=== PATIENT | male | born 1935 | race Caucasian/White ===

== ENCOUNTER 2017-05-30 09:27 | Emergency (ER) | payer MEDICARE, BC ==
[2016-07-05 12:15] VITALS: BMI 20.9
[~2017-05-30 09:27] MED LIST: ASCORBIC ACID500 MG PO; BABY ASPIRIN81 MG PO; BRILINTA90 MG PO; CARDURA2 MG PO; CINNAMON500 MG PO; COREG6.25 MG PO; EFFIENT10 MG PO; FLOMAX0.4 MG PO; GLIPIZIDE METFO PO; GLIPIZIDE10 MG PO; GLUCOPHAGE1000 MG PO; HYDROCHLOROTHIA25 MG PO; LASIX40 MG PO; LIBRIUM 10 MG C10 MG PO; LOVASTATIN20 MG PO; MAGNESIUM OXID250 MG PO; METOPROLOL TART50 MG PO; NORVASC5 MG PO; PRAVACHOL40 MG PO; PRESERVISION AR1 CAP PO; TRAVATAN Z2.5 ML EACH EYE; ULTRAM50 MG PO; VITAMIN C1000 MG PO; VITAMIN E1000 UNIT; ZESTRIL40 MG PO
[2017-05-30 10:17] LABS: ALBUMIN 3.3 g/dL (3.4-5.0); ALKALINE PHOSPHATASE 87 U/L (46-116); ALT (SGPT) 28 U/L (10-68); BILIRUBIN - TOTAL 0.55 mg/dL (0.2-1.3); CALC OSMOLALITY 304 mosm/kg (275-300); CARBON DIOXIDE 27.4 mmol/L (21.0-32.0); CHLORIDE - SERUM 103 mmol/L (98-107); CREATININE - SERUM 2.2 mg/dL (0.6-1.3); GLUCOSE 101 mg/dL (74-106); POTASSIUM - SERUM 4.1 mmol/L (3.5-5.1); PROTEIN - SERUM 7.1 g/dL (6.4-8.2); SODIUM 140 mmol/L (136-145); UREA NITROGEN 84 mg/dL (7-18); eGFR NON AFRICAN AMERICAN 31 mL/min (90-120)
[2017-05-30 10:24] LABS: BASOPHILS 0.3 % (0-2); EOSINOPHILS 4.4 % (0-7); HEMATOCRIT 31.6 % (42.0-54.0); HEMOGLOBIN 10.2 g/dL (13.5-17.5); IMMATURE GRANULOCYTES 0.1 % (0-5); LYMPHOCYTES 12.5 % (15-50); MCH 30.7 pg (26.0-34.0); MCHC 32.3 g/dL (31.0-37.0); MCV 95.2 fL (80.0-100.0); MEAN PLATELET VOLUME 10.3 fL (7.4-10.4); MONOCYTES 7.5 % (2-11); NEUTROPHILS 75.2 % (40-80); PLATELET COUNT 251 10x3/uL (130-400); RBC 3.32 10x6/uL (4.20-6.10); RDW 13.8 % (11.5-14.5); WBC 6.8 10x3/uL (4.8-10.8)
[2017-05-30 10:29] LABS: CKMB 2.2 U/L (0.0-3.6); CREATINE KINASE 65 UL (21-232); TROPONIN-I 0.045 ng/mL (0.000-0.060)
[2017-05-30 10:35] LABS: PRO BNP 46264 pg/mL (0-450)
[2017-05-30 10:36] LABS: APPEARANCE CLEAR (CLEAR); BILIRUBIN NEGATIVE (NEGATIVE); COLOR STRAW (YELLOW); GLUCOSE NEGATIVE (NEGATIVE); KETONE NEGATIVE (NEGATIVE); NITRITE NEGATIVE (NEGATIVE); PROTEIN NEGATIVE (NEGATIVE); UROBILINOGEN NORMAL (NORMAL)
== END 2017-05-30 11:45 | disposition home or self-care (01) ==
LOC: D.ER 09:27
PROVIDERS: Family Medicine
DX: I50.9 Heart failure, unspecified (principal); J20.9 Acute bronchitis, unspecified; N18.9 Chronic kidney disease, unspecified; E11.9 Type 2 diabetes mellitus without complications; J44.9 Chronic obstructive pulmonary disease, unspecified; F17.200 Nicotine dependence, unspecified, uncomplicated; I45.10 Unspecified right bundle-branch block

== ENCOUNTER 2017-06-10 16:33 | Inpatient (IN) | payer MEDICARE, BC ==
[~2017-06-10] VITALS: Ht 167.6 cm; Wt 59.1 kg
[2017-06-10 17:08] LABS: BASOPHILS 0.4 % (0-2); EOSINOPHILS 4.2 % (0-7); HEMATOCRIT 31.7 % (42.0-54.0); HEMOGLOBIN 10.3 g/dL (13.5-17.5); IMMATURE GRANULOCYTES 0.2 % (0-5); LYMPHOCYTES 12.8 % (15-50); MCH 30.2 pg (26.0-34.0); MCHC 32.5 g/dL (31.0-37.0); MONOCYTES 3.7 % (2-11); NEUTROPHILS 78.7 % (40-80); PLATELET COUNT 261 10x3/uL (130-400); RBC 3.41 10x6/uL (4.20-6.10); RDW 14.3 % (11.5-14.5); WBC 5.5 10x3/uL (4.8-10.8)
[2017-06-10 17:23] LABS: ALBUMIN 3.6 g/dL (3.4-5.0); ALKALINE PHOSPHATASE 110 U/L (46-116); ALT (SGPT) 29 U/L (10-68); BILIRUBIN - TOTAL 0.47 mg/dL (0.2-1.3); CALC OSMOLALITY 305 mosm/kg (275-300); CALCIUM 8.9 mg/dL (8.5-10.1); CARBON DIOXIDE 28.9 mmol/L (21.0-32.0); CHLORIDE - SERUM 100 mmol/L (98-107); CREATININE - SERUM 2.4 mg/dL (0.6-1.3); POTASSIUM - SERUM 4.9 mmol/L (3.5-5.1); PROTEIN - SERUM 7.3 g/dL (6.4-8.2); SODIUM 139 mmol/L (136-145); UREA NITROGEN 74 mg/dL (7-18); eGFR NON AFRICAN AMERICAN 28 mL/min (90-120)
[2017-06-10 17:31] LABS: GLUCOSE 206 mg/dL (74-106)
[2017-06-10 17:35] LABS: CKMB 2.8 U/L (0.0-3.6); CREATINE KINASE 89 UL (21-232); TROPONIN-I 0.029 ng/mL (0.000-0.060)
[2017-06-10 17:39] LABS: PRO BNP 30174 pg/mL (0-450)
[2017-06-10 20:00] VITALS: BP 116/85
--- NOTE | 2017-06-10 20:05 | NUR ---
RECIEVED TO ROOM 2200 VIA WHEELCHAIR FROM ER. ALERT,ORIENTED. PATIENT DEAF IN LEFT EAR. WEARS HEARING AID IN RIGHT EAR. ACCOMPAINED BY FAMILY. SL TO LEFT FOREARM WITHOUT REDNESS OR EDEMA NOTED. ORIENTED TO ROOM. CL IN REACH
[2017-06-10] MEDS ORDERED: TYLENOL W/CODEI1 TAB PO (23:29)
[2017-06-11] VITALS: BP 113/60
[2017-06-11 01:39] VITALS: BMI 22.2
--- NOTE | 2017-06-11 01:52 | NUR ---
RESTING QUIETLY. NO DISTRESS NOTED. CL IN REACH
[2017-06-11 04:00] VITALS: BP 114/53
--- NOTE | 2017-06-11 04:46 | NUR ---
AROUSES EASILY TO STIMULI. NO DISTRESS NOTED. NO COMPLAINTS VOICED
[2017-06-11 09:13] VITALS: BP 112/60
--- NOTE | 2017-06-11 09:24 | NUR ---
AWAKE AND ALERT. ORIENTED X3. SITTING UP ON SIDE OF BED. CHEST CLEAR. DENIES NEEDS.
--- NOTE | 2017-06-11 10:04 | NUR ---
RECVIED FROM MED SURG. AWAKE, ALERT AND ORIENTED.. TELEMERTY SHOWS SR WITH A BBB. V/S STABLE UP AB KYREE. DENIES ANY NEEDS. WILL MONITOR.
[2017-06-11 10:18] VITALS: BP 134/53
--- NOTE | 2017-06-11 12:20 | NUR ---
PT LYING QUIETY. DENIES ANY NEEDS. IV INFUSING WELL WITH DOBUTAMINE AT 5.3 MCG PER MIN. TELEMERTY SHOWS SR. SR UP WITH CALL LIGHT IN RECH. WILL MONITOR
--- NOTE | 2017-06-11 13:28 | NUR ---
RESTING QUIETLY RESP UNLABORED NAD NOTED
[2017-06-11 15:49] VITALS: BP 118/78
--- NOTE | 2017-06-11 17:35 | NUR ---
AMBULATING IN [address]. DENIES ANY NEEDS. WILL MONITOR
--- NOTE | 2017-06-11 19:41 | NUR ---
RESUMED CARE OF PT, UP ON SIDE OF BED RESPIRATIONS EVEN AND UNLABORED ON ROOM AIR. 67 SR WITH 1ST DEGREE AVB. LEFT AC INFUSING NS @ 50 AND DOBUTAMINE @ 3MCG/KG/MIN. HARD OF HEARING, NO NEEDS AT THIS TIME. CALL LIGHT IN REACH. SEE NURSE ASSESSMENT.
[2017-06-11 21:24] VITALS: BP 134/87
[2017-06-12] VITALS: BP 111/44
--- NOTE | 2017-06-12 03:13 | NUR ---
LYING IN BED WITH EYES CLOSED, CALL LIGHT IN REACH. WILL CONTINUE TO MONITOR.
[2017-06-12 04:00] VITALS: BP 146/59
[2017-06-12 05:22] LABS: BASOPHILS 0.3 % (0-2); EOSINOPHILS 7.8 % (0-7); HEMOGLOBIN 9.3 g/dL (13.5-17.5); IMMATURE GRANULOCYTES 0.2 % (0-5); LYMPHOCYTES 20.2 % (15-50); MCH 29.9 pg (26.0-34.0); MCHC 32.1 g/dL (31.0-37.0); MCV 93.2 fL (80.0-100.0); MEAN PLATELET VOLUME 10.1 fL (7.4-10.4); MONOCYTES 8.7 % (2-11); NEUTROPHILS 62.8 % (40-80); PLATELET COUNT 240 10x3/uL (130-400); RBC 3.11 10x6/uL (4.20-6.10); RDW 14.8 % (11.5-14.5); WBC 6.4 10x3/uL (4.8-10.8)
[2017-06-12 05:35] LABS: ALBUMIN 2.9 g/dL (3.4-5.0); ANION GAP 14.4 mmol/L (8-16); BILIRUBIN - TOTAL 0.35 mg/dL (0.2-1.3); CALCIUM 8.4 mg/dL (8.5-10.1); CARBON DIOXIDE 25.8 mmol/L (21.0-32.0); CREATININE - SERUM 2.4 mg/dL (0.6-1.3); POTASSIUM - SERUM 4.2 mmol/L (3.5-5.1); PROTEIN - SERUM 5.9 g/dL (6.4-8.2)
--- NOTE | 2017-06-12 06:38 | NUR ---
NO CHANGES FROM PREVIOUS ASSESSMENT, CALL LIGHT IN REACH. URINAL AT BEDSIDE, FOR CLEAN CATCH SAMPLE.
[2017-06-12 07:00] LABS: APPEARANCE CLEAR (CLEAR); BILIRUBIN NEGATIVE (NEGATIVE); COLOR YELLOW (YELLOW); GLUCOSE NEGATIVE (NEGATIVE); KETONE NEGATIVE (NEGATIVE); NITRITE NEGATIVE (NEGATIVE); PROTEIN NEGATIVE (NEGATIVE); SPECIFIC GRAVITY 1.005 (1.005-1.020); UROBILINOGEN NORMAL (NORMAL)
--- NOTE | 2017-06-12 07:35 | NUR ---
ASSESSMENT COMPLETED. TELEMERTY SHOWS PACED/SR AT 87. ON ROOM AIR. LEFT FA WITH NS AT 50 AND DOBUTAMINE AT 5.3. PT IS HARD OF HEARING. UP AB KYREE. WILL MONITOR
--- NOTE | 2017-06-12 08:00 | NUR ---
MEAL SERVED NAD NOTED
[2017-06-12 09:34] VITALS: BP 127/51
[2017-06-12 12:16] VITALS: BP 117/53
[2017-06-12 16:12] VITALS: BP 124/40
--- NOTE | 2017-06-12 17:03 | NUR ---
UP ON SIDE OF BED. READY FOR DIET. DENIES ANY NEEDS. TELEMERTY SHOWS PACED RHYTHM WITH SINUS BEATS
--- NOTE | 2017-06-12 19:31 | NUR ---
RESUMED CARE OF PT, LYING IN BED RESPIRATIONS EVEN AND UNLABORED ON ROOM AIR. RIGHT FOREARM INFUSING NS @ 50 AND DOBUTAMINE @ 5.3. 77 SR ON TELEMETRY. NO NEEDS AT HIS TIME, WILL CONTINUE TO MONITOR. SEE NURSE ASSESSMENT. CALL LIGHT IN REACH.
[2017-06-12 21:46] VITALS: BP 128/54
--- NOTE | 2017-06-12 23:33 | NUR ---
LYING IN BED WITH EYES CLOSED, RESPIRATIONS EVEN AND UNLABORED ON ROOM AIR. CALL LIGHT IN REACH.
[2017-06-13] VITALS: BP 123/54
[2017-06-13 03:24] LABS: BASOPHILS 0.3 % (0-2); EOSINOPHILS 8.3 % (0-7); HEMATOCRIT 28.5 % (42.0-54.0); HEMOGLOBIN 9.4 g/dL (13.5-17.5); LYMPHOCYTES 15.5 % (15-50); MCH 30.3 pg (26.0-34.0); MCV 91.9 fL (80.0-100.0); MEAN PLATELET VOLUME 9.9 fL (7.4-10.4); MONOCYTES 9.2 % (2-11); NEUTROPHILS 66.7 % (40-80); PLATELET COUNT 233 10x3/uL (130-400); RDW 14.6 % (11.5-14.5); WBC 6.7 10x3/uL (4.8-10.8)
[2017-06-13 03:58] LABS: ALBUMIN 2.9 g/dL (3.4-5.0); BILIRUBIN - TOTAL 0.42 mg/dL (0.2-1.3); CALCIUM 8.3 mg/dL (8.5-10.1); CARBON DIOXIDE 27.9 mmol/L (21.0-32.0); CREATININE - SERUM 2.3 mg/dL (0.6-1.3); POTASSIUM - SERUM 3.9 mmol/L (3.5-5.1)
[2017-06-13 05:33] VITALS: BP 128/52
--- NOTE | 2017-06-13 06:06 | NUR ---
NO CHANGES FROM PREVIOUS ASSESSMENT, CALL LIGHT IN REACH. WILL CONTINUE TO MONITOR.
--- NOTE | 2017-06-13 07:20 | NUR ---
PATIENT RECEIVED ON SIDE OF BED. PATIENT COMES TO DESK THIS AM AND ASKS "WHO THE HELL TURNED THE HEAT OFF?" ASSISTED PATIENT BACK TO ROOM AND ADJUSTED HEAT BACK TO EIGHTY DEGREES PER PATIENT REQUEST. NO SIGNS OR SYMPTOMS OF DISTRESS ARE NOTED AT THIS TIME.
[2017-06-13 08:52] VITALS: BP 113/35
--- NOTE | 2017-06-13 09:46 | NUR ---
UP AMBULATING WITH PT.
[2017-06-13 12:39] VITALS: BP 110/51
[2017-06-13 15:12] VITALS: Ht 167.6 cm; Wt 59.1 kg
[2017-06-13 16:27] VITALS: BP 145/56
--- NOTE | 2017-06-13 17:52 | NUR ---
PATIENT ON SIDE OF BED TALKING WITH FAMILY AT THIS TIME. CALL LIGHT AND WATER ARE WITHIN REACH. DOBUTAMINE INFUSING AT 5.3ML/HR. APPLIED BED ALARM THIS SHIFT, DUE TO PATIENT REFUSING TO CALL OUT FOR ASSISTANCE.
[2017-06-13 21:22] VITALS: BP 111/39
[2017-06-14 02:14] VITALS: BP 141/60
--- NOTE | 2017-06-14 05:29 | NUR ---
PT RESTING IN BED. IV DOBUTAMINE 3MCG/KG/MIN INFUSING @ 5.3ML/HR. IVF NS @ 20ML/HR ALSO INFUSING. IV LASIX GIVEN AT THIS TIME. CALL LIGHT IN REACH. CPOC.
[2017-06-14 05:33] LABS: BASOPHILS 0.7 % (0-2); HEMATOCRIT 30.6 % (42.0-54.0); IMMATURE GRANULOCYTES 0.1 % (0-5); LYMPHOCYTES 18.1 % (15-50); MCH 29.6 pg (26.0-34.0); MCHC 32.7 g/dL (31.0-37.0); MCV 90.5 fL (80.0-100.0); MEAN PLATELET VOLUME 10.1 fL (7.4-10.4); MONOCYTES 9.6 % (2-11); NEUTROPHILS 61.5 % (40-80); PLATELET COUNT 264 10x3/uL (130-400); RBC 3.38 10x6/uL (4.20-6.10); RDW 14.6 % (11.5-14.5); WBC 7.5 10x3/uL (4.8-10.8)
[2017-06-14 05:55] VITALS: BP 125/53
[2017-06-14 06:03] LABS: ALBUMIN 3.1 g/dL (3.4-5.0); BILIRUBIN - TOTAL 0.7 mg/dL (0.2-1.3); CALCIUM 8.7 mg/dL (8.5-10.1); CARBON DIOXIDE 29.4 mmol/L (21.0-32.0); CREATININE - SERUM 2.1 mg/dL (0.6-1.3); POTASSIUM - SERUM 3.4 mmol/L (3.5-5.1); PROTEIN - SERUM 6.5 g/dL (6.4-8.2)
[2017-06-14 06:05] LABS: % SATURATION 9 % (15-55); IRON 35 ug/dl (35-150); TOTAL IRON BIND CAPACITY 361 ug/dl (260-445); UNSAT IRON BIND CAPACITY 326 ug/dl (150-375)
[2017-06-14 07:43] VITALS: BP 128/66
--- NOTE | 2017-06-14 08:08 | NUR ---
AM ROUNDS - PT IS AWAKE AND SITTING ON THE SIDE OF THE BED AT THIS TIME. YELLOW BAND ON. MONITOR SHOWING PACE. IV TO RIGHT FA, NS AT 20CC/HR AND DOBUTAMINE AT 5.3CC/HR. PT IS VERY HARD OF HEARING. A&O. PT IS ON ROOM AIR. BED AT LOWEST POSITION. CALL RICHARDSON IN USE/REACH. SIDE RAILS UP X2. WILL CONTINUE TO MONITOR. WILL CONTINUE TO MONITOR
--- NOTE | 2017-06-14 08:52 | NUR ---
AM ROUNDS - PT IS AWAKE AND SITTING ON THE SIDE OF THE BED. PT IS ON ROOM AIR. IV TO RIGHT FA, NS AT 20CC/HR AND DOBUTAMINE AT 5.3CC.HR. PT IS VERY HARD OF HEARING. PT IS UP AD KYREE. BED AT LOWEST POSITION. CALL RICHARDSON IN USE/REACH. SIDE RAILS UP X2. WILL CONTINEUT O MONITOR
[2017-06-14 10:20] LABS: ERYTHROPOIETIN 11.8 mIU/mL (2.6-18.5)
[2017-06-14 11:35] VITALS: BP 119/43
--- NOTE | 2017-06-14 13:46 | NUR ---
PAGED CARDIOLOGY PER DR. LITTLE TO CLARIFY D/C OR NOT OF DABUTAMINE. AWAITING CALL BACK. WILL CONTINUE TO MONITOR
--- NOTE | 2017-06-14 15:39 | NUR ---
SPOKE WITH DR. EVANGELISTA ABOUT D/C DOBUTAMINE. DR. EVANGELISTA SAID D/C. WILL D/C DOBUTAMINE. WILL CONTINUE TO MONITOR
--- NOTE | 2017-06-14 18:08 | NUR ---
PT IS OUT OF ROOM AT THIS TIME SITTING IN A CHAIR IN THE HALLWAY. NO NEEDS AT THIS TIME. WILL CONTINUE TO MONITOR.
--- NOTE | 2017-06-14 18:18 | NUR ---
IV TO RIGHT FA LEAKED AND PT WANTED IT REMOVED. TRIED TO FLUSH AND INFILTRATED. IV D/C, CATH TIP INTACT, 2X2 DRESSING APPLIED ADN SECURED WITH TAPE. WILL CONTINUE TO MONITOR
--- NOTE | 2017-06-14 18:38 | NUR ---
20 GAUGE IV PLACED TO RIGHT FOREARM X 1 STICK. GOOD BLOOD RETURN, EASY FLUSH. TAPED, DATED AND SECURED. TOLERATED IV PLACEMENT WELL. NO DISTRESS.
[2017-06-14 21:50] VITALS: BP 103/48
--- NOTE | 2017-06-14 23:04 | NUR ---
PATIENT UP WALKING AROUND IN THE ROOM, AWAKE AND ALERT. HE IS HARD OF HEARING AND HAS DIFFICULTLY READING WELL. THERE IS SOME DIFFICULTY WITH COMMUNICATION. C/O PEEING ALL NIGHT. DENIES ANY PAIN AT THIS TIME.
[2017-06-15 00:20] VITALS: BP 98/30
--- NOTE | 2017-06-15 02:52 | NUR ---
PT RESTING COMFORTABLY, NO NEEDS. CONTINUE TO MONITOR CLOSELY.
[2017-06-15 04:33] VITALS: BP 122/54
[2017-06-15 05:27] LABS: BASOPHILS 0.4 % (0-2); EOSINOPHILS 10.8 % (0-7); HEMATOCRIT 32.1 % (42.0-54.0); HEMOGLOBIN 10.3 g/dL (13.5-17.5); IMMATURE GRANULOCYTES 0.1 % (0-5); LYMPHOCYTES 15.8 % (15-50); MCH 29.5 pg (26.0-34.0); MCHC 32.1 g/dL (31.0-37.0); MEAN PLATELET VOLUME 10.1 fL (7.4-10.4); MONOCYTES 9.6 % (2-11); NEUTROPHILS 63.3 % (40-80); PLATELET COUNT 273 10x3/uL (130-400); RBC 3.49 10x6/uL (4.20-6.10); RDW 14.6 % (11.5-14.5); WBC 7.2 10x3/uL (4.8-10.8)
[2017-06-15 05:55] LABS: ALBUMIN 3.4 g/dL (3.4-5.0); ANION GAP 13.7 mmol/L (8-16); BILIRUBIN - TOTAL 0.8 mg/dL (0.2-1.3); CALCIUM 8.8 mg/dL (8.5-10.1); CARBON DIOXIDE 30.8 mmol/L (21.0-32.0); CREATININE - SERUM 2.1 mg/dL (0.6-1.3); POTASSIUM - SERUM 3.5 mmol/L (3.5-5.1); PROTEIN - SERUM 6.5 g/dL (6.4-8.2)
[2017-06-15] MEDS ORDERED: LASIX40 MG PO (07:03)
[2017-06-15 07:27] LABS: SPE - A/G RATIO 1.3 (0.7-1.7); SPE - ALPHA-1 GLOBULIN 0.2 g/dL (0.0-0.4); SPE - ALPHA-2 GLOBULIN 0.7 g/dL (0.4-1.0); SPE - BETA GLOBULIN 0.7 g/dL (0.7-1.3); SPE - GAMMA GLOBULIN 0.7 g/dL (0.4-1.8); SPE - M-SPIKE Not Observed g/dL (Not Observed); SPE - TOTAL PROTEIN 5.4 g/dL (6.0-8.5)
--- NOTE | 2017-06-15 07:43 | NUR ---
AWAKE UP WALKING IN SINGH. WANTING FOR DISCHARGE.
--- NOTE | 2017-06-15 07:59 | NUR ---
UP AMBULATING IN HALLWAY.
[2017-06-15 08:21] VITALS: BP 125/52
[2017-06-15 09:16] LABS: FOLATE (FOLIC ACID) - SERUM 9.1 ng/mL (>3.0)
--- NOTE | 2017-06-15 09:34 | NUR ---
IV REMOVED WITH TIP INTACT. DISCHARGE INSTRUCTIONS GIVEN TO PT AND FAMILY. TO CAR VIA WC.
--- NOTE | 2017-06-15 09:50 | NUR ---
Patient Name: PATRICIA CRUZ Admission Status: ER Accout number: [id number] Admission Date: 06-10-2017 : 1935 Admission Diagnosis: Attending: LANNY GOFF Current LOS: 5 Anticipated DC Date: 06-15-2017 Planned Disposition: Home with Home Health Primary Insurance: MEDICARE A & B PLANNED EXTERNAL PROVIDER: [facility] Discharge Planning Comments: * Is the patient Alert and Oriented? Yes 0 * How many steps to enter\exit or inside your home? 5 W/RAILS 0 * PCP DR. LITTLE 0 * Pharmacy [facility] 0 * Preadmission Environment Home Alone 0 * ADLs Independent 0 * Equipment Other 0 * Other Equipment [facility] - MEDICAL EQUIPMENT PROVIDER PREFERENCE 0 * List name and contact numbers for known caregivers / representatives who currently or will assist patient after discharge: BRENDA CRUZ, SON, 0 * Community resources currently utilized Home Health 0 * Please name any agencies selected above. [facility] - [phone] 0 * Additional services required to return to the preadmission environment? No 0 * Can the patient safely return to the preadmission environment? Yes 0 * Has this patient been hospitalized within the prior 30 days at any hospital? No 0 CM RECEIVED HOME HEALTH ORDER, NOTIFIED BY DIRECTIONAL BORE OPERATOR NURSE THAT PT IS IN A HURRY TO LEAVE FAMILY HAS TO GO TO WORK THIS MORNING. CM MET WITH PT AND SON IN ROOM TO DISCUSS DISCHARGE PLANNING AND NEEDS. PT IS VERY HARD OF HEARING; REPORTS LIVING AT HOME INDEPENDENTLY AND ALONE. PT HAS NO MEDICAL EQUIPMENT AND HOME HEALTH WITH [facility]. CM DISCUSSED AVAILABILITY OF HOME HEALTH, REHAB SERVICES AND MEDICAL EQUIPMENT. PT DENIES DISCHARGE NEEDS, WOULD LIKE HOME HEALTH RESUMED, REPORTS HIS SON WILL PICK HIM UP FOR DISCHARGE HOME NOW. IMPORTANT MESSAGE FROM MEDICARE PROVIDED AND EXPLAINED. CM CALLED [facility], SPOKE TO SUSIE, , PROVIDED DISCHARGE AND HOME HEALTH INSTRUCTIONS FOR RESUMPTION TOMORROW; FAXED DISCHARGE INFORMATION TO [facility] AT [phone]. BEDSIDE NURSE NOTIFIED. Lapidarist: Eusebio Guzman
== END 2017-06-15 09:35 | disposition home health service (06) | DRG 682 ==
LOC: D.ER 16:33 → D.M2 19:11 → D.MS 19:11 → D.M2 06-11 10:01
PROVIDERS: Emergency Medicine; Family Medicine; Internal Medicine Nephrology; Nurse Practitioner Family; ADMIT Family Medicine
DX: N17.9 Acute kidney failure, unspecified (principal); I50.23 Acute on chronic systolic (congestive) heart failure; I13.0 Hypertensive heart and chronic kidney disease with heart failure and stage 1 through stage 4 chronic kidney disease, or unspecified chronic kidney disease; I42.9 Cardiomyopathy, unspecified; N18.3 Chronic kidney disease, stage 3 (moderate); E11.22 Type 2 diabetes mellitus with diabetic chronic kidney disease; I35.0 Nonrheumatic aortic (valve) stenosis; I25.10 Atherosclerotic heart disease of native coronary artery without angina pectoris; I45.10 Unspecified right bundle-branch block; N28.1 Cyst of kidney, acquired; K59.00 Constipation, unspecified; D63.1 Anemia in chronic kidney disease; E11.65 Type 2 diabetes mellitus with hyperglycemia; Z95.0 Presence of cardiac pacemaker; Z72.0 Tobacco use

== ENCOUNTER 2017-06-25 15:23 | Inpatient (IN) | payer MEDICARE, BC ==
[~2017-06-25] VITALS: Ht 167.6 cm; Wt 65.1 kg
--- NOTE | ~2017-06-25 | HP ---
PATIENT: PATRICIA CRUZ MEDICAL RECORD: [id number] ACCOUNT: [id number] LOCATION:[address] : [birth year] ADMISSION DATE: 06/25/17 HISTORY AND PHYSICAL EXAMINATION DATE OF ADMISSION: 06/25/2017. CHIEF COMPLAINT: Shortness of breath. HISTORY OF PRESENT ILLNESS: The patient is an 81-year-old gentleman with a history of having arteriosclerotic heart disease. Apparently, the patient approximately a week ago had a cardiac catheterization with stent placed. The patient states he developed increasing shortness of breath. He has had a history of having CHF, presents to the Emergency Room and it was felt by the Emergency Room physician that the patient did warrant admission. PAST MEDICAL HISTORY: Significant that he has had diabetes mellitus. He has had hypertension, CHF with an ejection fraction approximately 30%. He had a benign neoplasm of the adrenal gland, carcinoma in situ of the trunk, hyperlipidemia, and anxiety. He is very hard of hearing, carotid artery occlusion. FAMILY HISTORY: Mother had hypertension and hyperlipidemia. Father apparently of heart disease. SOCIAL HISTORY: The patient apparently does live alone. 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 He is . The patient continued to be a 1 pack per day smoker and has been so for 60+ years. He denies any history of alcohol use at the present time, but states he has been a heavy drinker in the past. PAST SURGICAL HISTORY: He has had a cholecystectomy. He has had prior cervical surgery in the past. ALLERGIES: He has known drug allergies. MEDICATIONS: Include aspirin 81 mg once a day, Librium 1 mg p.o. daily, Effient 10 mg 1 p.o. daily, Lasix 40 mg p.o. b.i.d., glipizide 10 mg one every morning, DuoNeb updrafts q.4 hours p.r.n. shortness of breath, Lantus SoloSTAR 15 units daily, and lovastatin 20 mg once a day. He is on NovoLog FlexPen sliding scale from 201-250 four units, 251-300 six units, from 301-350 eight units, 351-400 twelve units, and above for 401 fifteen units; Seroquel 25 mg p.o. at bedtime; Flomax 0.4 mg once a day; temazepam 7.5 mg p.o. at bedtime p.r.n. insomnia; Tylenol No. 3 one every 4 hours p.r.n. severe pain. REVIEW OF SYSTEMS: CONSTITUTIONAL: He denies any headaches, seizure, or syncope. Denies change in visual or auditory acuity. PULMONARY: He does report having increasing shortness of breath. CARDIOVASCULAR: He has had no chest pain, palpitation, PND, or orthopnea. GASTROINTESTINAL: No chronic nausea, vomiting, melena, or hematochezia. GENITOURINARY: No urgency, frequency, or dysuria. PHYSICAL EXAMINATION: VITAL SIGNS: In the Emergency Room, apparently the patient was afebrile. His pulse 80, respirations 20, his blood pressure 119/56, temperature 97. HISTORY AND PHYSICAL [id number] PATRICIA CRUZ HEENT: Head is normocephalic. No lesions. Ears: TMs clear. Eyes: Pupils equal, round, and reactive to light. His extraocular movements are intact. Nasal cavity, oral cavity, oropharynx clear. NECK: Supple. There is no adenopathy. HEART: He has a regular rate without any murmurs, gallops, or rubs. LUNGS: Clear. ABDOMEN: Soft. The bowel sounds are positive. EXTREMITIES: Lower extremities have no edema. LABORATORY DATA AND DIAGNOSTIC STUDIES: The patient had an EKG showing sinus rhythm, first-degree AV block. The patient had a chest x-ray. Chest x-ray revealed mild bibasilar atelectasis with no acute cardiopulmonary abnormality seen. He had a white count of 5.7, hemoglobin 9.5, hematocrit was 29.3 and his platelets were 262. He had a sodium 139, potassium 4.3, chloride 104, CO2 was 23, BUN is 90, creatinine 1.8, and glucose was 207. The patient had a proBNP of 38,002. ASSESSMENT: Includes history of arteriosclerotic heart disease with ejection fraction of 30%, moderate mitral calcification, diabetes mellitus, and hypertension. PLAN: The patient will be admitted. Cardiology consultation will be obtained with a slight elevation in his troponin as well as a CPK. We will continue diuresis. TRANSINT:[id number] Voice Confirmation ID: [id number] DOCUMENT ID: [id number] MITUL KATHLEEN MD at 0718 CC: [id number] DICTATION DATE: 06/26/17 1001 KICKING MACHINE OPERATOR: 06/26/17 1046 DIS IN 06/26/17 [place] [id number] [place] [id number]
--- NOTE | ~2017-06-25 | CN ---
PATIENT NAME:PATRICIA NI MEDICAL RECORD: [id number] : 37 LOCATION:[facility] [address] ADMIT DATE: 06/25/17 ACCOUNT: [id number] CONSULTING PHYSICIAN: AUDELIA EVANGELISTA MD REFERRING PHYSICIAN: VLAD LITTLE DO DATE OF CONSULTATION: 06/26/2017 CARDIOLOGY CONSULTATION DIAGNOSES: 1. Shortness of breath. 2. Congestive heart failure, chronic systolic dysfunction. 3. Cardiomyopathy, ischemic. 4. Coronary artery disease. 5. Previous percutaneous transluminal coronary angioplasty stent. 6. Hypertension. HISTORY OF PRESENT ILLNESS: Mr. Ni presents with shortness of breath. His chest x-ray is not compatible with congestive heart failure. He has a productive cough. His troponin is mildly elevated; however, he underwent 2-vessel PTCA for in-stent restenosis last week. His EKG is with no changes. He denies any chest pain or chest discomfort other than with coughing. PHYSICAL EXAMINATION: GENERAL APPEARANCE: Well-nourished, well-developed, appears stated age. Level of distress, comfortable. PSYCHIATRIC: Mental status, alert, normal affect. Orientation, oriented to time, place and person. EYES: Lids and conjunctiva, noninjected. No discharge, no pallor. ENT: Lips, teeth, gums, normal dentition. Oropharynx, no cyanosis, no pallor. NECK: Carotid arteries, bilateral normal upstroke, no bruits, no thrills. JUGULAR VEINS: No jugular venous pressure or distention. CERVICAL LYMPH NODES: Nontender, nonenlarged. THYROID: Not enlarged. Nontender. No nodules. LUNGS: Respiratory effort, unlabored. CHEST: Normal curvature. No thoracic deformity. No chest wall tenderness. Percussion, resonant. Auscultation, clear. No wheezes, no rales, no rhonchi. CARDIOVASCULAR: Precordial exam, nondisplaced. No heaves or pericardial thrills. Rate and rhythm, regular. Heart sounds, normal S1, normal S2. No S3, no gallop, no rub. Systolic murmur, not heard. Diastolic murmur, not heard. EXTREMITIES: No cyanosis, no edema. Peripheral pulses, full and equal in all extremities, except as noted. No bruits appreciated. ABDOMEN: Soft, nondistended. Normal aorta. No bruit. Nontender. No masses. Liver, nontender, no hepatomegaly. Spleen, nontender, no splenomegaly. MUSCULOSKELETAL: No joint tenderness. No joint swelling. No erythema. NEUROLOGICAL: Normal gait, normal strength, normal tone. SKIN: Warm and dry. OVERALL IMPRESSION: At this time, he does not need repeat cardiac intervention. Troponin is most likely still mildly elevated secondary to the intervention. There are no other blockages that need attention. His EKG is stable. Chest x-ray is not compatible with congestive heart failure. At this time, no other cardiac workup or treatment is necessary. TRANSINT:[id number] Voice Confirmation ID: [id number] DOCUMENT ID: [id number] CONSULT REPORT [id number] PATRICIA NI, AUDELIA ZAZUETA at 1546 CC: [id number] DICTATION DATE: 06/26/17 1000 CATHETER BUILDER: 06/26/17 1054 DIS IN 06/26/17 [facility] [address] [place] [address]
[~2017-06-25 15:23] MED LIST changes: +TYLENOL W/CODEI1 TAB PO
[2017-06-25 17:08] LABS: ALBUMIN 3.4 g/dL (3.4-5.0); ALKALINE PHOSPHATASE 99 U/L (46-116); ALT (SGPT) 47 U/L (10-68); BILIRUBIN - TOTAL 0.56 mg/dL (0.2-1.3); CALC OSMOLALITY 315 mosm/kg (275-300); CARBON DIOXIDE 25.8 mmol/L (21.0-32.0); CHLORIDE - SERUM 105 mmol/L (98-107); CREATININE - SERUM 1.8 mg/dL (0.6-1.3); POTASSIUM - SERUM 4.4 mmol/L (3.5-5.1); PROTEIN - SERUM 6.6 g/dL (6.4-8.2); SODIUM 140 mmol/L (136-145); UREA NITROGEN 105 mg/dL (7-18); eGFR NON AFRICAN AMERICAN 39 mL/min (90-120)
[2017-06-25 17:10] LABS: GLUCOSE 165 mg/dL (74-106)
[2017-06-25 17:11] LABS: BASOPHILS 0.4 % (0-2); EOSINOPHILS 4.4 % (0-7); HEMATOCRIT 29.3 % (42.0-54.0); HEMOGLOBIN 9.5 g/dL (13.5-17.5); IMMATURE GRANULOCYTES 0.2 % (0-5); LYMPHOCYTES 13.7 % (15-50); MCH 29.4 pg (26.0-34.0); MCHC 32.4 g/dL (31.0-37.0); MCV 90.7 fL (80.0-100.0); MEAN PLATELET VOLUME 10.5 fL (7.4-10.4); MONOCYTES 12.1 % (2-11); NEUTROPHILS 69.2 % (40-80); PLATELET COUNT 262 10x3/uL (130-400); RBC 3.23 10x6/uL (4.20-6.10); RDW 14.9 % (11.5-14.5); WBC 5.7 10x3/uL (4.8-10.8)
[2017-06-25 17:32] LABS: CKMB 4.9 U/L (0.0-3.6); CREATINE KINASE 115 UL (21-232)
[2017-06-25 17:36] LABS: PRO BNP 38594 pg/mL (0-450)
[2017-06-25 17:42] LABS: TROPONIN-I 0.104 ng/mL (0.000-0.060)
[2017-06-25 20:32] VITALS: BP 119/56; Ht 167.6 cm; Wt 65.1 kg
[2017-06-25 21:08] VITALS: BP 119/56
[2017-06-25] MEDS ORDERED: SEROQUEL25 MG PO (21:32)
[2017-06-25] MEDS ORDERED: HUMALOG 30100 UNITS/ SC (21:33)
[2017-06-25] MEDS ORDERED: LANTUS INSULIN10 ML SC (21:33)
[2017-06-25] MEDS ORDERED: RESTORIL15 MG (21:34)
[2017-06-25] MEDS ORDERED: GLUCOPHAGE1000 MG PO (21:34)
[2017-06-26 01:05] LABS: CKMB 4.9 U/L (0.0-3.6); CREATINE KINASE 110 UL (21-232); TROPONIN-I 0.114 ng/mL (0.000-0.060)
[2017-06-26 01:27] VITALS: BP 121/65
[2017-06-26 02:48] LABS: APPEARANCE CLEAR (CLEAR); BILIRUBIN NEGATIVE (NEGATIVE); COLOR YELLOW (YELLOW); GLUCOSE 50 mg/dL (NEGATIVE); KETONE NEGATIVE (NEGATIVE); NITRITE NEGATIVE (NEGATIVE); PROTEIN NEGATIVE (NEGATIVE); SPECIFIC GRAVITY 1.015 (1.005-1.020); UROBILINOGEN NORMAL (NORMAL)
[2017-06-26 06:51] VITALS: BP 153/75
[2017-06-26 07:06] LABS: BASOPHILS 0.4 % (0-2); HEMATOCRIT 29.8 % (42.0-54.0); HEMOGLOBIN 9.7 g/dL (13.5-17.5); IMMATURE GRANULOCYTES 0.2 % (0-5); LYMPHOCYTES 15.8 % (15-50); MCH 29.5 pg (26.0-34.0); MCHC 32.6 g/dL (31.0-37.0); MCV 90.6 fL (80.0-100.0); MEAN PLATELET VOLUME 9.8 fL (7.4-10.4); MONOCYTES 10.9 % (2-11); NEUTROPHILS 66.7 % (40-80); PLATELET COUNT 260 10x3/uL (130-400); RBC 3.29 10x6/uL (4.20-6.10); WBC 5.3 10x3/uL (4.8-10.8)
[2017-06-26 07:44] LABS: CALC OSMOLALITY 311 mosm/kg (275-300); CALCIUM 8.6 mg/dL (8.5-10.1); CARBON DIOXIDE 23.1 mmol/L (21.0-32.0); CHLORIDE - SERUM 104 mmol/L (98-107); CKMB 5.5 U/L (0.0-3.6); CREATINE KINASE 116 UL (21-232); CREATININE - SERUM 1.8 mg/dL (0.6-1.3); GLUCOSE 207 mg/dL (74-106); POTASSIUM - SERUM 4.3 mmol/L (3.5-5.1); SODIUM 139 mmol/L (136-145); UREA NITROGEN 90 mg/dL (7-18); eGFR NON AFRICAN AMERICAN 39 mL/min (90-120)
[2017-06-26 08:06] LABS: TROPONIN-I 0.109 ng/mL (0.000-0.060)
[2017-06-26 08:24] VITALS: BP 134/74
[2017-06-26 08:40] LABS: PRO BNP 38002 pg/mL (0-450)
[2017-06-26 12:11] VITALS: BP 137/78
== END 2017-06-26 12:41 | disposition home or self-care (01) | DRG 191 ==
LOC: D.ER 15:23 → D.M2 18:44
PROVIDERS: Emergency Medicine
DX: J44.1 Chronic obstructive pulmonary disease with (acute) exacerbation (principal); J98.11 Atelectasis; I50.22 Chronic systolic (congestive) heart failure; I11.0 Hypertensive heart disease with heart failure; I25.10 Atherosclerotic heart disease of native coronary artery without angina pectoris; E11.9 Type 2 diabetes mellitus without complications; E78.5 Hyperlipidemia, unspecified; F41.9 Anxiety disorder, unspecified; I25.5 Ischemic cardiomyopathy; G47.00 Insomnia, unspecified; I44.0 Atrioventricular block, first degree; Z95.5 Presence of coronary angioplasty implant and graft